=== PATIENT | male | born 1995 | race African-American/Black ===

== ENCOUNTER 2023-10-07 18:01 | Emergency (ER) | payer MEDICAID ==
[~2023-10-07] VITALS: Ht 165.1 cm; Wt 66.0 kg
[2023-10-07 18:02] VITALS: TEMP 97.1; O2SAT 98
[2023-10-07] MEDS ORDERED: KETOROLAC 60MG/2ML VIAL IM ONE (18:15)
[2023-10-07] MEDS ORDERED: ONDANSETRON 4MG ODT PO ONE (18:15)
[2023-10-07 18:30] VITALS: BP 134/80; PULSE 90; RESP 18
[2023-10-07 19:31] LABS: HEMATOCRIT. 44.5 % (42.0-52.0); HEMOGLOBIN. 14.2 g/dL (14.0-18.0); MEAN CORPUSCULAR HEMOGLOBIN 29.4 pg (28.0-32.0); MEAN CORPUSCULAR HGB CONC 31.9 g/dL (31.0-37.0); MEAN CORPUSCULAR VOLUME 92.4 fL (80.0-94.0); MEAN PLATELET VOLUME 9.3 fl (7.4-10.4); PLATELET 230 x1000/uL (130-400); RED BLOOD CELL COUNT 4.82 mill/uL (4.7-6.1); WHITE BLOOD COUNT 7.1 x1000/uL (4.5-11.0)
[2023-10-07 19:33] LABS: DIFFERENTIAL COMMENT 1
[2023-10-07 19:41] LABS: PROTHROMBIN TIME 11.2 sec (9.6-11.0)
[2023-10-07 19:48] LABS: ALANINE AMINOTRANSFERASE 39 IU/L (10-49); ALBUMIN 4.3 g/dL (3.2-4.8); ASPARTATE AMINOTRANSFERASE 31 IU/L (<34); BILIRUBIN TOTAL 0.3 mg/dL (0.1-1.0); CALCIUM 8.5 mg/dL (8.7-10.4); CARBON DIOXIDE 31 mEq/L (21-32); CHLORIDE 105 mEq/L (98-107); CREATININE 0.9 mg/dL (0.6-1.3); ETHANOL BLOOD < 10 mg/dL (<10); GLUCOSE 87 mg/dL (70-105); POTASSIUM 3.9 mEq/L (3.5-5.1); PROTEIN TOTAL 6.8 g/dL (6.0-8.3); SODIUM 141 mEq/L (136-145); UREA NITROGEN BLOOD 13 mg/dL (9-23)
[2023-10-07 19:59] LABS: CLARITY URINE CLEAR (CLEAR); COLOR URINE YELLOW (YELLOW); GLUCOSE URINE NEGATIVE (NEGATIVE); KETONES URINE NEGATIVE (NEGATIVE); LEUKOCYTE ESTERASE URINE 1+ (NEGATIVE); NITRITE URINE NEGATIVE (NEGATIVE); OCCULT BLOOD URINE NEGATIVE (NEGATIVE); PROTEIN URINE NEGATIVE (NEGATIVE); SPECIFIC GRAVITY URINE 1.026 (1.005-1.030)
[2023-10-07 20:09] LABS: *AMPHETAMINES SCREEN URINE PRESUMPTIVE POSITIVE (NEGATIVE); *BARBITURATES SCREEN URINE NEGATIVE (NEGATIVE); *BENZODIAZEPINES SCREEN URINE NEGATIVE (NEGATIVE); *COCAINE SCREEN URINE NEGATIVE (NEGATIVE); CANNABINOID URINE SCREEN PRESUMPTIVE POSITIVE (NEGATIVE); ECSTASY MDMA SCREEN URINE NEGATIVE (NEGATIVE); METHADONE URINE SCREEN Neg (NEGATIVE); OPIATES URINE SCREEN NEGATIVE (NEGATIVE); PHENCYCLIDINE URINE SCREEN PRESUMTIVE POSITIVE (NEGATIVE)
[2023-10-07 20:14] LABS: BACTERIA URINE TRACE; RBC URINE 0-2 /hpf (0-2); SQUAMOUS EPITHELIAL CELL URINE FEW /lpf (RARE/1+)
[2023-10-07] MEDS ORDERED: ONDA4TAB11 PO (20:31)
[2023-10-07 20:51] LABS: PLATELET ESTIMATE NORMAL
== END 2023-10-07 20:59 | disposition home or self-care (01) ==
LOC: ER 18:01
DX: R11.2 Nausea with vomiting, unspecified (principal); F19.10 Other psychoactive substance abuse, uncomplicated
CPT/HCPCS: 80053; 80305; 81003; 80320; 83690; 85025; 85610; 36415; 74176; 96372; 99285; Q0162; J1885; Z7610; G0480

== ENCOUNTER 2024-04-03 22:06 | Emergency (ER) | payer MEDICAID ==
[~2024-04-03] VITALS: Ht 167.6 cm; Wt 55.0 kg
[~2024-04-03 22:06] MED LIST: ONDA4TAB11 PO
[2024-04-03 22:07] VITALS: BP 149/73; RESP 16; TEMP 98.5; O2SAT 99
[2024-04-03 22:14] VITALS: PULSE 101
[2024-04-03 22:30] LABS: BASOPHILS % 0.5 % (0.0-2.0); EOSINOPHILS % 12.3 % (0.0-5.0); HEMATOCRIT. 40.5 % (42.0-52.0); HEMOGLOBIN. 13.3 g/dL (14.0-18.0); LYMPHOCYTES % 41.2 % (20.0-50.0); MEAN CORPUSCULAR HEMOGLOBIN 29.4 pg (28.0-32.0); MEAN CORPUSCULAR HGB CONC 32.7 g/dL (31.0-37.0); MEAN CORPUSCULAR VOLUME 89.9 fL (80.0-94.0); MEAN PLATELET VOLUME 9.4 fl (7.4-10.4); MONOCYTES % 10.5 % (2.0-8.0); NEUTROPHILS % 35.5 % (40.0-76.0); PLATELET 233 x1000/uL (130-400); RED BLOOD CELL COUNT 4.51 mill/uL (4.7-6.1); RED CELL DISTRIBUTION WIDTH 14.1 % (11.6-14.6); WHITE BLOOD COUNT 6.8 x1000/uL (4.5-11.0)
[2024-04-03 22:35] LABS: CHLORIDE 106 mEq/L (98-107); POTASSIUM 3.8 mEq/L (3.5-5.1); SODIUM 142 mEq/L (136-145)
[2024-04-03 22:36] LABS: CARBON DIOXIDE 30 mEq/L (21-32)
[2024-04-03 22:41] LABS: CREATININE 1.2 mg/dL (0.6-1.3); GLUCOSE 88 mg/dL (70-105); UREA NITROGEN BLOOD 16 mg/dL (9-23)
[2024-04-03 22:42] LABS: ETHANOL BLOOD < 10 mg/dL (<10)
== END 2024-04-04 03:59 | disposition left against medical advice (07) ==
LOC: ER 22:06 → 7WST 22:07 → UNDOADMIN 22:07 → ER 04-04 03:59
DX: F15.10 Other stimulant abuse, uncomplicated (principal); R44.0 Auditory hallucinations
CPT/HCPCS: 36415; 80048; 80320; 85025; 99283; G0480